=== PATIENT | female | born 1985 | race Caucasian/White ===

== ENCOUNTER 2020-04-15 13:53 | Emergency (ER) | payer MEDICAID ==
[~2020-04-15] VITALS: Ht 167.6 cm; Wt 50.0 kg
[2020-04-15 14:07] VITALS: Ht 167.6 cm; Wt 50.0 kg
[2020-04-15] MEDS ORDERED: BUPROPION HCL100 MG PO (14:08)
[2020-04-15] MEDS ORDERED: ATIVAN1 MG PO (14:08)
[2020-04-15] MEDS ORDERED: REXULTI1 MG PO (14:09)
[2020-04-15 14:53] LABS: BASOPHILS 0.4 % (0-2); EOSINOPHILS 2.2 % (0-7); HEMATOCRIT 41.7 % (36.0-48.0); HEMOGLOBIN 13.7 g/dL (12-16); IMMATURE GRANULOCYTES 0.1 % (0-5); LYMPHOCYTES 21.7 % (15-50); MCH 30.5 pg (26.0-34.0); MCHC 32.9 g/dL (31.0-37.0); MCV 92.9 fL (80.0-100.0); MEAN PLATELET VOLUME 8.4 fL (7.4-10.4); MONOCYTES 6.2 % (2-11); NEUTROPHILS 69.4 % (40-80); PLATELET COUNT 362 10x3/uL (130-400); RBC 4.49 10x6/uL (4.00-5.40); RDW 12.7 % (11.5-14.5)
--- NOTE | 2020-04-15 15:02 | NUR ---
DR. LAWRENCE NOTIFIED AND REVIEWED PT'S BEHAVIOR AND ASSESSMENT RESULTS. PT IS A MODERATE RISK PER DR. ESCALONA. DR. LAWRENCE STATED TO GIVE RESOURCES TO PT AT TIME OF DISCHARGE. NO FURTHER ORDERS AT THIS TIME. RESOURCES REVIEWED WITH PT AND SHE VERBALIZIED UNDERSTANDING.
[2020-04-15 15:11] LABS: ANION GAP 10.6 mmol/L (8-16); CALCIUM 8.9 mg/dL (8.5-10.1); POTASSIUM - SERUM 4.6 mmol/L (3.5-5.1)
[2020-04-15 15:16] LABS: ALBUMIN 3.9 g/dL (3.4-5.0); BILIRUBIN - TOTAL 0.77 mg/dL (0.2-1.3); MAGNESIUM - SERUM 2.2 mg/dL (1.8-2.4); PROTEIN - SERUM 7.9 g/dL (6.4-8.2)
[2020-04-15 15:33] LABS: BILIRUBIN NEGATIVE (NEGATIVE); KETONE NEGATIVE (NEGATIVE); NITRITE NEGATIVE (NEGATIVE); UROBILINOGEN NORMAL (NORMAL)
[2020-04-15 15:34] LABS: HCG URINE NEGATIVE (NEGATIVE)
[2020-04-15 15:40] LABS: UDS - AMPHET POSITIVE QUAL (NEGATIVE); UDS - BARB NEGATIVE QUAL (NEGATIVE); UDS - BENZO NEGATIVE QUAL (NEGATIVE); UDS - COCAINE NEGATIVE QUAL (NEGATIVE); UDS - OPIATE NEGATIVE QUAL (NEGATIVE); UDS - PCP NEGATIVE QUAL (NEGATIVE); UDS - THC POSITIVE QUAL (NEGATIVE)
[2020-04-15 21:54] VITALS: BP 131/81
== END 2020-04-15 21:54 ==
LOC: D.ER 13:53
PROVIDERS: Emergency Medicine
DX: F31.89 Other bipolar disorder (principal); F15.10 Other stimulant abuse, uncomplicated; R45.851 Suicidal ideations; F17.200 Nicotine dependence, unspecified, uncomplicated; R44.0 Auditory hallucinations

== ENCOUNTER 2020-04-28 01:46 | Emergency (ER) | payer MEDICAID ==
[~2020-04-28] VITALS: Ht 167.6 cm; Wt 63.6 kg
[~2020-04-28 01:46] MED LIST: ATIVAN1 MG PO; BUPROPION HCL100 MG PO; REXULTI1 MG PO
[2020-04-28 01:48] VITALS: Ht 167.6 cm; Wt 63.6 kg
[2020-04-28 03:28] VITALS: BP 127/76
== END 2020-04-28 03:28 | disposition home or self-care (01) ==
LOC: D.ER 01:46
DX: R25.2 Cramp and spasm (principal); T43.4X5A Adverse effect of butyrophenone and thiothixene neuroleptics, initial encounter

== ENCOUNTER 2020-12-10 21:36 | Emergency (ER) | payer MEDICAID ==
[~2020-12-10] VITALS: Ht 167.6 cm; Wt 47.7 kg
[2020-12-10 21:40] VITALS: Ht 167.6 cm; Wt 47.7 kg
[2020-12-10 22:41] LABS: BASOPHILS 0.4 % (0-2); EOSINOPHILS 2.6 % (0-7); HEMOGLOBIN 11.2 g/dL (12-16); IMMATURE GRANULOCYTES 0.1 % (0-5); LYMPHOCYTE ABS# 3.26 10x3/uL (1.18-3.74); LYMPHOCYTES 30.6 % (15-50); MCH 29.9 pg (26.0-34.0); MCV 85.6 fL (80.0-100.0); MEAN PLATELET VOLUME 8.4 fL (7.4-10.4); MONOCYTES 10.2 % (2-11); NEUTROPHIL ABS# 5.99 10x3/uL (1.56-6.13); NEUTROPHILS 56.1 % (40-80); PLATELET COUNT 338 10x3/uL (130-400); RBC 3.74 10x6/uL (4.00-5.40); RDW 12.3 % (11.5-14.5); WBC 10.7 10x3/uL (4.8-10.8)
[2020-12-10 22:53] LABS: BILIRUBIN NEGATIVE (NEGATIVE); HCG URINE NEGATIVE (NEGATIVE); KETONE MODERATE mg/dL (NEGATIVE); NITRITE NEGATIVE (NEGATIVE); UROBILINOGEN NORMAL mg/dL (< 2)
[2020-12-10 22:54] LABS: UDS - AMPHET POSITIVE QUAL (NEGATIVE); UDS - BARB NEGATIVE QUAL (NEGATIVE); UDS - BENZO NEGATIVE QUAL (NEGATIVE); UDS - COCAINE NEGATIVE QUAL (NEGATIVE); UDS - OPIATE NEGATIVE QUAL (NEGATIVE); UDS - PCP NEGATIVE QUAL (NEGATIVE); UDS - THC POSITIVE QUAL (NEGATIVE)
[2020-12-10 22:58] LABS: ALBUMIN 3.1 g/dL (3.4-5.0); ALKALINE PHOSPHATASE 67 U/L (30-120); ALT (SGPT) 44 U/L (10-68); BILIRUBIN - TOTAL 0.76 mg/dL (0.2-1.3); CALC OSMOLALITY 273 mosm/kg (275-300); CALCIUM 8.3 mg/dL (8.5-10.1); CARBON DIOXIDE 25.4 mmol/L (21.0-32.0); CHLORIDE - SERUM 104 mmol/L (98-107); CREATININE - SERUM 0.8 mg/dL (0.6-1.3); GLUCOSE 101 mg/dL (74-106); MAGNESIUM - SERUM 1.9 mg/dL (1.8-2.4); PROTEIN - SERUM 6.4 g/dL (6.4-8.2); SODIUM 138 mmol/L (136-145); UREA NITROGEN 7 mg/dL (7-18); eGFR NON AFRICAN AMERICAN 87 mL/min (90-120)
[2020-12-10] MEDS ORDERED: AUGMENTIN 875-11 TAB PO (23:22)
[2020-12-11 06:37] VITALS: BP 114/68
== END 2020-12-11 06:38 | disposition home or self-care (01) ==
LOC: D.ER 21:36
PROVIDERS: Family Medicine
DX: F15.10 Other stimulant abuse, uncomplicated (principal); F20.9 Schizophrenia, unspecified; S41.151A Open bite of right upper arm, initial encounter; W54.0XXA Bitten by dog, initial encounter; Y93.9 Activity, unspecified; Y92.9 Unspecified place or not applicable; F41.9 Anxiety disorder, unspecified; R41.0 Disorientation, unspecified